=== PATIENT | female | born 1960 | race Hispanic/Latino ===

== ENCOUNTER 2017-10-29 00:32 | Inpatient (IN) | payer MEDICAID ==
[~2017-10-29] VITALS: Ht 167.6 cm; Wt 86.1 kg
[2017-10-29] MEDS ORDERED: IPRATROPIUM/ALBUTEROL SULFATE 3 ML SOLUTION IH ONE ×4 (00:48→03:34)
[2017-10-29] MEDS ORDERED: SODIUM CHLORIDE 0.9% 1000ML 1,000 ML IV ONE (02:04)
[2017-10-29] MEDS ORDERED: ACETAMINOPHEN 325 MG TAB ONE (02:04)
[2017-10-29] MEDS ORDERED: METHYLPREDNISOLONE SOD SUCC 125MG/2ML VIAL ONE (02:04)
[2017-10-29] MEDS ORDERED: IBUPROFEN 800 MG TAB ONE (02:50)
[2017-10-29] MEDS ORDERED: PROMETHAZINE/CODEINE 6.25-10MG/5ML CUP ONE (03:25)
[2017-10-29 04:00] LABS: BASOPHILS % (AUTO) 0.4 % (0.0-5.0); EOSINOPHILS % (AUTO) 0.8 % (0.0-8.0); HEMATOCRIT 35.5 % (36-48); LYMPHOCYTES % (AUTO) 6.4 % (21.0-51.0); MEAN CORPUSCULAR HEMOGLOBIN 27.2 pg (27.0-33.0); MEAN CORPUSCULAR HGB CONC 32.8 g/dL (32.0-36.0); MEAN CORPUSCULAR VOLUME 82.8 fL (79-99); MONOCYTES % (AUTO) 3.5 % (3.0-13.0); NEUTROPHILS % (AUTO) 88.9 % (40.0-77.0); PLATELET COUNT (AUTO) 210 K/uL (130-400); RED BLOOD CELL COUNT(AUTO) 4.29 MIL/uL (4.00-5.50); RED CELL DISTRIBUTION WIDTH 14.2 % (11.0-15.5); WHITE BLOOD COUNT (AUTO) 18.7 K/uL (4.8-10.8)
[2017-10-29 04:12] LABS: CREATININE 0.8 mg/dL (0.5-1.5); POTASSIUM 3.5 mmol/L (3.5-5.1)
[2017-10-29] MEDS ORDERED: CEFTRIAXONE SODIUM 2 GM VIAL ONE (04:13)
[2017-10-29] MEDS ORDERED: ONDANSETRON HCL 4 MG/2 ML VIAL ONE (04:13)
[2017-10-29] MEDS ORDERED: MORPHINE SULFATE 4 MG/1ML SYG ONE (04:14)
[2017-10-29 06:09] VITALS: BP 136/77
[2017-10-29] MEDS ORDERED: MORPHINE SULFATE 2 MG/ML 1ML SYG ONE (06:37)
[2017-10-29] MEDS ORDERED: ACETAMINOPHEN 325 MG TAB PO PRN ×2 (06:45)
[2017-10-29] MEDS ORDERED: ONDANSETRON HCL 4 MG/2 ML VIAL IV PRN (06:45)
[2017-10-29] MEDS ORDERED: NITROGLYCERIN 0.4 MG SL TAB SL PRN (06:45)
[2017-10-29] MEDS ORDERED: HYDRALAZINE HCL 20 MG/ML VIAL IV PRN (06:45)
[2017-10-29] MEDS ORDERED: POTASSIUM CHLORIDE 10% ELIXIR 20 MEQ/15 ML UDCUP PO PRN (06:45)
[2017-10-29] MEDS ORDERED: POTASSIUM CHLORIDE 20MEQ/100ML 100 ML IV PRN (06:45)
[2017-10-29] MEDS ORDERED: MAG HYDROX/AL HYDROX/SIMETH ES 30 ML SUSP UDCUP PO PRN (06:45)
[2017-10-29] MEDS ORDERED: METHYLPREDNISOLONE SOD SUCC 125MG/2ML VIAL IV SCH (06:45)
[2017-10-29] MEDS ORDERED: LACTULOSE 20 GM/30 ML UDCUP PO PRN (06:45)
[2017-10-29] MEDS ORDERED: LIDOCAINE HCL-MPF 1% 2ML VIAL IVP PRN (06:45)
[2017-10-29 07:44] LABS: CREATINE KINASE MB 0.7 ng/mL (0.5-3.6); CREATINE KINASE, TOTAL 88 U/L (21-232); MYOGLOBIN 38 ng/mL (10-92); TROPONIN I < 0.04 ng/mL (0.00-0.06)
[2017-10-29 08:00] VITALS: BP 110/61
[2017-10-29 08:07] LABS: ABG BASE EXCESS -4.9 mmol/L (-2.0-3.0); ABG HCO3 19.5 mmol/L (21.0-28.0); ABG OXYGEN SATURATION 96.7 % (95.0-99.0); ABG PCO2 35 mmHg (32-45)
[2017-10-29] MEDS: LEVOFLOXACIN 500 MG/D5W 100 ML 100 ML IV SCH (08:52)
[2017-10-29] MEDS: SODIUM CHLORIDE 0.9% 1000ML 1,000 ML IV SCH ×2 (08:52→20:15)
[2017-10-29] MEDS: OSELTAMIVIR PHOSPHATE 75 MG CAP PO SCH ×2 (08:52→20:14)
[2017-10-29] MEDS: FAMOTIDINE 20MG TAB 20 MG TAB PO SCH ×2 (08:52→20:14)
[2017-10-29] MEDS: ENOXAPARIN SODIUM 40 MG/0.4 ML SYRINGE SQ SCH (08:53)
[2017-10-29] MEDS ORDERED: PHARMACY COMMUNICATION MISC SCH (10:30)
[2017-10-29] MEDS: METHYLPREDNISOLONE SOD SUCC 125MG/2ML VIAL IV SCH ×2 (10:30→18:09)
[2017-10-29] MEDS: IPRATROPIUM/ALBUTEROL SULFATE 3 ML SOLUTION IH ONE ×2 (10:48→10:51)
[2017-10-29] MEDS ORDERED: COMPOUND PO MISCELLANEOUS 1 EACH MISC MISC PRN (11:00)
[2017-10-29] MEDS ORDERED: KETOROLAC TROMETHAMINE 15MG/ML IV PRN (11:15)
[2017-10-29 12:00] VITALS: BP 111/50
[2017-10-29] MEDS ORDERED: ALBUTEROL SULFATE 0.083% 2.5 MG/3 ML INH IH SCH (12:00)
[2017-10-29] MEDS: KETOROLAC TROMETHAMINE 15MG/ML IV SCH ×3 (12:19→23:16)
[2017-10-29] MEDS ORDERED: ALBUTEROL SULFATE 0.083% 2.5 MG/3 ML INH IH PRN (13:45)
[2017-10-29] MEDS: BENZONATATE 100 MG CAPSULE PO SCH ×2 (13:46→20:14)
[2017-10-29] MEDS: POTASSIUM CHLORIDE 20 MEQ ERTAB PO PRN (13:47)
[2017-10-29] MEDS: ALBUTEROL SULFATE 0.083% 2.5 MG/3 ML INH IH SCH ×3 (14:12→23:43)
[2017-10-29 15:52] VITALS: BP 108/55
[2017-10-29] MEDS: MORPHINE SULFATE 4 MG/1ML SYG IVP PRN (16:44)
[2017-10-29] MEDS: LIDOCAINE HCL 2% VISCOUS 30 ML, MAG HYDROX/AL HYDROX/SIMETH 30 ML, DICYCLOMINE HCL 20 MG PO PRN ×3 (16:44)
[2017-10-29 19:00] VITALS: BP 110/61
[2017-10-29] MEDS: GUAIFENESIN-DM 200/20 MG 10 ML PO PRN (20:14)
[2017-10-29] MEDS: ALPRAZOLAM 0.25 MG TABLET PO PRN (20:14)
[2017-10-30] VITALS (7 sets, daily range): BP systolic 97–137; BP diastolic 47–67
[2017-10-30] MEDS: SODIUM CHLORIDE 0.9% 1000ML 1,000 ML IV SCH ×2 (02:12→05:09)
[2017-10-30] MEDS: METHYLPREDNISOLONE SOD SUCC 125MG/2ML VIAL IV SCH ×3 (02:17→18:47)
[2017-10-30] MEDS: ALBUTEROL SULFATE 0.083% 2.5 MG/3 ML INH IH SCH ×6 (03:03→22:01)
[2017-10-30] MEDS: GUAIFENESIN-DM 200/20 MG 10 ML PO PRN ×2 (03:37→20:21)
[2017-10-30] MEDS: ACETAMINOPHEN-CODEINE 300/30MG TAB PO PRN (03:38)
[2017-10-30] MEDS: KETOROLAC TROMETHAMINE 15MG/ML IV SCH (05:01)
[2017-10-30 05:58] LABS: HEMATOCRIT 33.4 % (36-48); MEAN CORPUSCULAR HGB CONC 32.5 g/dL (32.0-36.0); MEAN CORPUSCULAR VOLUME 82.9 fL (79-99); PLATELET COUNT (AUTO) 205 K/uL (130-400); RED BLOOD CELL COUNT(AUTO) 4.03 MIL/uL (4.00-5.50); RED CELL DISTRIBUTION WIDTH 14.6 % (11.0-15.5); WHITE BLOOD COUNT (AUTO) 21.6 K/uL (4.8-10.8)
[2017-10-30 06:08] LABS: CREATININE 0.7 mg/dL (0.5-1.5); POTASSIUM 4.5 mmol/L (3.5-5.1)
[2017-10-30] MEDS: OSELTAMIVIR PHOSPHATE 75 MG CAP PO SCH ×2 (08:53→20:21)
[2017-10-30] MEDS: BENZONATATE 100 MG CAPSULE PO SCH ×3 (08:54→20:21)
[2017-10-30] MEDS: FAMOTIDINE 20MG TAB 20 MG TAB PO SCH ×2 (08:54→20:21)
[2017-10-30] MEDS: ENOXAPARIN SODIUM 40 MG/0.4 ML SYRINGE SQ SCH (08:54)
[2017-10-30] MEDS: LEVOFLOXACIN 500 MG/D5W 100 ML 100 ML IV SCH (08:54)
[2017-10-30] MEDS: ALPRAZOLAM 0.25 MG TABLET PO PRN (10:37)
[2017-10-30 11:01] LABS: APPEARANCE,URINE Clear (CLEAR); BILIRUBIN,URINE Negative (NEGATIVE); COLOR,URINE Yellow (YELLOW); GLUCOSE, URINE (UA) 250 mg/dL (NEGATIVE); KETONES,URINE Negative (NEGATIVE); LEUKOCYTE ESTERASE ,URINE Negative (NEGATIVE); NITRATE,URINE Negative (NEGATIVE); OCCULT BLOOD,URINE Negative (NEGATIVE); PH,URINE 5.5 (5.0-8.0); PROTEIN,URINE Negative (NEGATIVE); UROBILINOGEN,URINE 0.2 mg/dL (0.2-1.0)
[2017-10-30 11:10] LABS: BACTERIA,URINE Rare /HPF (None Seen); RBC,URINE 0-1 /HPF (0-1); SQUAMOUS EPITHELIAL CELL,UR Rare /LPF (0-2); WBC,URINE 0-1 /HPF (0-1)
[2017-10-30] MEDS ORDERED: SODIUM CHLORIDE 3% FOR INHALATION 4 ML/AMP VIAL.NEB IH ONE (13:25)
[2017-10-30] MEDS: ZOLPIDEM TARTRATE 5 MG TAB PO PRN (20:21)
[2017-10-31] MEDS: GUAIFENESIN-DM 200/20 MG 10 ML PO PRN (01:56)
[2017-10-31] MEDS: METHYLPREDNISOLONE SOD SUCC 125MG/2ML VIAL IV SCH ×3 (01:56→18:46)
[2017-10-31] MEDS: ALPRAZOLAM 0.25 MG TABLET PO PRN (01:56)
[2017-10-31] MEDS: ALBUTEROL SULFATE 0.083% 2.5 MG/3 ML INH IH SCH ×6 (03:08→22:16)
[2017-10-31 04:00] VITALS: BP 110/54
[2017-10-31 05:56] LABS: MEAN CORPUSCULAR HEMOGLOBIN 27.6 pg (27.0-33.0); MEAN CORPUSCULAR HGB CONC 33.5 g/dL (32.0-36.0); MEAN CORPUSCULAR VOLUME 82.6 fL (79-99); PLATELET COUNT (AUTO) 211 K/uL (130-400); RED CELL DISTRIBUTION WIDTH 14.5 % (11.0-15.5); WHITE BLOOD COUNT (AUTO) 24.2 K/uL (4.8-10.8)
[2017-10-31 06:11] LABS: CREATININE 0.7 mg/dL (0.5-1.5); POTASSIUM 4.4 mmol/L (3.5-5.1)
[2017-10-31 07:08] VITALS: BP 104/48
[2017-10-31] MEDS: ENOXAPARIN SODIUM 40 MG/0.4 ML SYRINGE SQ SCH (09:34)
[2017-10-31] MEDS: FAMOTIDINE 20MG TAB 20 MG TAB PO SCH ×2 (09:34→22:24)
[2017-10-31] MEDS: OSELTAMIVIR PHOSPHATE 75 MG CAP PO SCH ×2 (09:34→22:24)
[2017-10-31] MEDS: BENZONATATE 100 MG CAPSULE PO SCH ×3 (09:34→22:25)
[2017-10-31] MEDS: LEVOFLOXACIN 500 MG/D5W 100 ML 100 ML IV SCH (09:34)
[2017-10-31] MEDS ORDERED: VANCOMYCIN PROTOCOL PER PHARMACY IV PRN (09:45)
[2017-10-31 11:00] VITALS: BP 103/48
[2017-10-31] MEDS ORDERED: VANCOMYCIN 1.5 GM in SODIUM CHLORIDE 0.9% 250 ML IV ONE (12:00)
[2017-10-31] MEDS ORDERED: COMPOUND IV REFRIGERATED 1 EACH IVSOLN MISC PRN (12:00)
[2017-10-31] MEDS: ACETYLCYSTEINE 20% 200MG/ML 4ML VIAL IH SCH ×2 (13:30→22:16)
[2017-10-31] MEDS: GUAIFENESIN-CODEINE 5 ML SYRUP PO PRN (14:02)
[2017-10-31 15:00] VITALS: BP 112/63
[2017-10-31] MEDS: ZOSYN 3.375GM+NS 50ML 50 ML IV SCH ×2 (16:18→22:24)
[2017-10-31 19:59] VITALS: BP 127/59
[2017-10-31] MEDS: ACETAMINOPHEN-CODEINE 300/30MG TAB PO PRN (22:24)
[2017-10-31] MEDS: VANCOMYCIN 750MG + NS 250 ML IV SCH ×2 (22:24)
[2017-11-01] VITALS (7 sets, daily range): BP systolic 114–136; BP diastolic 51–67
[2017-11-01] MEDS: ALBUTEROL SULFATE 0.083% 2.5 MG/3 ML INH IH SCH ×6 (02:08→22:38)
[2017-11-01] MEDS: GUAIFENESIN-CODEINE 5 ML SYRUP PO PRN ×3 (02:25→21:07)
[2017-11-01] MEDS: METHYLPREDNISOLONE SOD SUCC 125MG/2ML VIAL IV SCH ×3 (02:25→18:04)
[2017-11-01] MEDS: ZOSYN 3.375GM+NS 50ML 50 ML IV SCH ×3 (04:32→21:06)
[2017-11-01] MEDS: VANCOMYCIN 750MG + NS 250 ML IV SCH ×6 (04:32→19:53)
[2017-11-01] MEDS: LIDOCAINE HCL 2% VISCOUS 30 ML, MAG HYDROX/AL HYDROX/SIMETH 30 ML, DICYCLOMINE HCL 20 MG PO PRN ×3 (04:42)
[2017-11-01 05:58] LABS: HEMATOCRIT 32.2 % (36-48); MEAN CORPUSCULAR HEMOGLOBIN 26.9 pg (27.0-33.0); MEAN CORPUSCULAR HGB CONC 32.7 g/dL (32.0-36.0); MEAN CORPUSCULAR VOLUME 82.4 fL (79-99); PLATELET COUNT (AUTO) 200 K/uL (130-400); RED BLOOD CELL COUNT(AUTO) 3.91 MIL/uL (4.00-5.50); WHITE BLOOD COUNT (AUTO) 17.1 K/uL (4.8-10.8)
[2017-11-01 06:19] LABS: CREATININE 0.9 mg/dL (0.5-1.5); POTASSIUM 3.8 mmol/L (3.5-5.1)
[2017-11-01] MEDS: ACETYLCYSTEINE 20% 200MG/ML 4ML VIAL IH SCH (07:16)
[2017-11-01] MEDS: LEVOFLOXACIN 500 MG/D5W 100 ML 100 ML IV SCH (09:07)
[2017-11-01] MEDS: OSELTAMIVIR PHOSPHATE 75 MG CAP PO SCH ×2 (09:07→19:54)
[2017-11-01] MEDS: ENOXAPARIN SODIUM 40 MG/0.4 ML SYRINGE SQ SCH (09:08)
[2017-11-01] MEDS: FAMOTIDINE 20MG TAB 20 MG TAB PO SCH ×2 (09:08→19:54)
[2017-11-01] MEDS: BENZONATATE 100 MG CAPSULE PO SCH ×3 (09:08→19:54)
[2017-11-01] MEDS: LACTOBACILLUS RHAMNOSUS GG 1 EACH CAP.SPRINK PO SCH ×2 (14:51→19:53)
[2017-11-01] MEDS: MORPHINE SULFATE 2 MG/ML 1ML SYG IV PRN (14:55)
[2017-11-01] MEDS: ZOLPIDEM TARTRATE 5 MG TAB PO PRN (19:54)
[2017-11-01] MEDS: LOPERAMIDE HCL 2 MG CAP PO PRN (19:54)
[2017-11-02] MEDS: ALBUTEROL SULFATE 0.083% 2.5 MG/3 ML INH IH SCH ×6 (01:12→21:23)
[2017-11-02] MEDS: METHYLPREDNISOLONE SOD SUCC 125MG/2ML VIAL IV SCH ×3 (02:14→17:43)
[2017-11-02 03:00] VITALS: BP 132/78
[2017-11-02] MEDS: GUAIFENESIN-CODEINE 5 ML SYRUP PO PRN (03:10)
[2017-11-02] MEDS: VANCOMYCIN 750MG + NS 250 ML IV SCH ×6 (03:10→21:18)
[2017-11-02 05:53] LABS: HEMATOCRIT 32.4 % (36-48); MEAN CORPUSCULAR HEMOGLOBIN 27.8 pg (27.0-33.0); MEAN CORPUSCULAR HGB CONC 33.8 g/dL (32.0-36.0); MEAN CORPUSCULAR VOLUME 82.3 fL (79-99); NUCLEATED RED BLOOD CELLS 0.1 % (0.0-0.19); PLATELET COUNT (AUTO) 203 K/uL (130-400); RED BLOOD CELL COUNT(AUTO) 3.93 MIL/uL (4.00-5.50); RED CELL DISTRIBUTION WIDTH 14.4 % (11.0-15.5); WHITE BLOOD COUNT (AUTO) 17.1 K/uL (4.8-10.8)
[2017-11-02 05:57] LABS: CREATININE 0.8 mg/dL (0.5-1.5); POTASSIUM 3.5 mmol/L (3.5-5.1)
[2017-11-02] MEDS: ZOSYN 3.375GM+NS 50ML 50 ML IV SCH ×3 (06:20→21:19)
[2017-11-02] MEDS: POTASSIUM CHLORIDE 20 MEQ ERTAB PO PRN ×2 (06:21→08:09)
[2017-11-02 08:05] VITALS: BP 125/67
[2017-11-02] MEDS: BENZONATATE 100 MG CAPSULE PO SCH ×3 (08:08→21:18)
[2017-11-02] MEDS: LACTOBACILLUS RHAMNOSUS GG 1 EACH CAP.SPRINK PO SCH ×3 (08:08→21:18)
[2017-11-02] MEDS: LEVOFLOXACIN 500 MG/D5W 100 ML 100 ML IV SCH (08:08)
[2017-11-02] MEDS: ENOXAPARIN SODIUM 40 MG/0.4 ML SYRINGE SQ SCH (08:09)
[2017-11-02] MEDS: OSELTAMIVIR PHOSPHATE 75 MG CAP PO SCH ×2 (08:09→21:18)
[2017-11-02] MEDS: FAMOTIDINE 20MG TAB 20 MG TAB PO SCH ×2 (08:09→21:18)
[2017-11-02] MEDS: ACETAMINOPHEN-CODEINE 300/30MG TAB PO PRN (08:13)
[2017-11-02 11:58] VITALS: BP 131/64
[2017-11-02 15:00] VITALS: BP 149/71
[2017-11-02] MEDS: MORPHINE SULFATE 4 MG/1ML SYG IVP PRN (16:27)
[2017-11-02 20:16] VITALS: BP 134/74
[2017-11-02] MEDS: ZOLPIDEM TARTRATE 5 MG TAB PO PRN (22:05)
[2017-11-02 23:57] VITALS: BP 143/66
[2017-11-03] MEDS: ALBUTEROL SULFATE 0.083% 2.5 MG/3 ML INH IH SCH ×7 (01:16→22:31)
[2017-11-03] MEDS: METHYLPREDNISOLONE SOD SUCC 125MG/2ML VIAL IV SCH (03:04)
[2017-11-03] MEDS: MORPHINE SULFATE 2 MG/ML 1ML SYG IV PRN (03:05)
[2017-11-03 03:34] VITALS: BP 126/59
[2017-11-03] MEDS: VANCOMYCIN 750MG + NS 250 ML IV SCH ×2 (04:45)
[2017-11-03 05:54] LABS: HEMATOCRIT 31.9 % (36-48); MEAN CORPUSCULAR HEMOGLOBIN 27.1 pg (27.0-33.0); MEAN CORPUSCULAR HGB CONC 33.1 g/dL (32.0-36.0); MEAN CORPUSCULAR VOLUME 81.9 fL (79-99); PLATELET COUNT (AUTO) 212 K/uL (130-400); RED BLOOD CELL COUNT(AUTO) 3.89 MIL/uL (4.00-5.50); RED CELL DISTRIBUTION WIDTH 14.7 % (11.0-15.5); WHITE BLOOD COUNT (AUTO) 18.6 K/uL (4.8-10.8)
[2017-11-03 06:09] LABS: CREATININE 0.8 mg/dL (0.5-1.5); POTASSIUM 3.3 mmol/L (3.5-5.1)
[2017-11-03] MEDS: ZOSYN 3.375GM+NS 50ML 50 ML IV SCH ×3 (06:49→22:29)
[2017-11-03 08:00] VITALS: BP 134/70
[2017-11-03] MEDS: LEVOFLOXACIN 500 MG/D5W 100 ML 100 ML IV SCH (11:58)
[2017-11-03] MEDS: LACTOBACILLUS RHAMNOSUS GG 1 EACH CAP.SPRINK PO SCH ×3 (11:59→22:33)
[2017-11-03] MEDS: BENZONATATE 100 MG CAPSULE PO SCH ×3 (11:59→22:32)
[2017-11-03] MEDS: FAMOTIDINE 20MG TAB 20 MG TAB PO SCH ×2 (11:59→22:29)
[2017-11-03] MEDS: POTASSIUM CHLORIDE 20 MEQ ERTAB PO PRN ×3 (12:00→17:08)
[2017-11-03] MEDS: ENOXAPARIN SODIUM 40 MG/0.4 ML SYRINGE SQ SCH (12:01)
[2017-11-03] MEDS: ACETAMINOPHEN-CODEINE 300/30MG TAB PO PRN (12:06)
[2017-11-03 12:08] VITALS: BP 137/64
[2017-11-03 16:00] VITALS: BP 135/64
[2017-11-03 20:00] VITALS: BP 133/64
[2017-11-03] MEDS: METHYLPREDNISOLONE SOD SUCC 40MG/ML 1ML IVP SCH (22:29)
[2017-11-03] MEDS: LOPERAMIDE HCL 2 MG CAP PO PRN (22:37)
[2017-11-03] MEDS: ZOLPIDEM TARTRATE 5 MG TAB PO PRN (22:37)
[2017-11-03 23:48] VITALS: BP 138/64
[2017-11-04] MEDS: ALBUTEROL SULFATE 0.083% 2.5 MG/3 ML INH IH SCH ×6 (02:04→22:23)
[2017-11-04 03:48] VITALS: BP 135/65
[2017-11-04 05:35] LABS: HEMATOCRIT 32.6 % (36-48); MEAN CORPUSCULAR HEMOGLOBIN 27.2 pg (27.0-33.0); MEAN CORPUSCULAR HGB CONC 33.2 g/dL (32.0-36.0); MEAN CORPUSCULAR VOLUME 81.8 fL (79-99); PLATELET COUNT (AUTO) 189 K/uL (130-400); RED BLOOD CELL COUNT(AUTO) 3.98 MIL/uL (4.00-5.50); RED CELL DISTRIBUTION WIDTH 14.7 % (11.0-15.5); WHITE BLOOD COUNT (AUTO) 21.5 K/uL (4.8-10.8)
[2017-11-04 05:43] LABS: CREATININE 0.9 mg/dL (0.5-1.5); POTASSIUM 3.5 mmol/L (3.5-5.1)
[2017-11-04] MEDS: ZOSYN 3.375GM+NS 50ML 50 ML IV SCH ×3 (06:35→22:45)
[2017-11-04] MEDS: POTASSIUM CHLORIDE 20 MEQ ERTAB PO PRN ×2 (06:35→10:39)
[2017-11-04] MEDS: GUAIFENESIN-CODEINE 5 ML SYRUP PO PRN (06:40)
[2017-11-04 07:56] VITALS: BP 147/65
[2017-11-04] MEDS: ENOXAPARIN SODIUM 40 MG/0.4 ML SYRINGE SQ SCH (08:41)
[2017-11-04] MEDS: BENZONATATE 100 MG CAPSULE PO SCH ×3 (08:41→22:46)
[2017-11-04] MEDS: LACTOBACILLUS RHAMNOSUS GG 1 EACH CAP.SPRINK PO SCH ×3 (08:41→22:46)
[2017-11-04] MEDS: METHYLPREDNISOLONE SOD SUCC 40MG/ML 1ML IVP SCH (08:41)
[2017-11-04] MEDS: FAMOTIDINE 20MG TAB 20 MG TAB PO SCH ×2 (08:41→22:46)
[2017-11-04] MEDS ORDERED: FLUCONAZOLE 200 MG/NS 100 ML 100 ML IV SCH (09:00)
[2017-11-04] MEDS: LEVOFLOXACIN 500 MG/D5W 100 ML 100 ML IV SCH (11:03)
[2017-11-04] MEDS: ACETAMINOPHEN-CODEINE 300/30MG TAB PO PRN ×2 (11:04→18:35)
[2017-11-04 11:50] VITALS: BP 151/69
[2017-11-04] MEDS ORDERED: SODIUM CHLORIDE 0.9% 1000ML 1,000 ML IV ONE (12:21)
[2017-11-04] MEDS ORDERED: ACETYLCYSTEINE 20% 200MG/ML 4ML VIAL IH SCH (14:00)
[2017-11-04 16:33] VITALS: BP 147/62
[2017-11-04 21:33] VITALS: BP 148/70
[2017-11-04] MEDS: MORPHINE SULFATE 4 MG/1ML SYG IVP PRN (23:00)
[2017-11-04 23:40] VITALS: BP 131/61
[2017-11-05] MEDS: ALBUTEROL SULFATE 0.083% 2.5 MG/3 ML INH IH SCH ×2 (02:37→07:32)
[2017-11-05] MEDS: ALPRAZOLAM 0.25 MG TABLET PO PRN (02:47)
[2017-11-05 04:24] VITALS: BP 122/57
[2017-11-05 05:47] LABS: HEMATOCRIT 30.8 % (36-48); MEAN CORPUSCULAR HEMOGLOBIN 26.9 pg (27.0-33.0); MEAN CORPUSCULAR HGB CONC 32.8 g/dL (32.0-36.0); MEAN CORPUSCULAR VOLUME 81.9 fL (79-99); PLATELET COUNT (AUTO) 187 K/uL (130-400); RED BLOOD CELL COUNT(AUTO) 3.77 MIL/uL (4.00-5.50); RED CELL DISTRIBUTION WIDTH 14.7 % (11.0-15.5); WHITE BLOOD COUNT (AUTO) 23.4 K/uL (4.8-10.8)
[2017-11-05] MEDS: ZOSYN 3.375GM+NS 50ML 50 ML IV SCH (05:49)
[2017-11-05 05:57] LABS: CREATININE 0.8 mg/dL (0.5-1.5); POTASSIUM 3.1 mmol/L (3.5-5.1)
[2017-11-05 08:06] VITALS: BP 135/69
[2017-11-05] MEDS: LEVOFLOXACIN 500 MG/D5W 100 ML 100 ML IV SCH (08:13)
[2017-11-05] MEDS ORDERED: LEVOFLOXACIN 500 MG TABLET PO SCH (09:30)
[2017-11-05] MEDS ORDERED: DOXYCYCLINE HYCLATE 100 MG TABLET PO SCH (09:30)
[2017-11-05] MEDS: FAMOTIDINE 20MG TAB 20 MG TAB PO SCH (09:39)
[2017-11-05] MEDS: LACTOBACILLUS RHAMNOSUS GG 1 EACH CAP.SPRINK PO SCH (09:39)
[2017-11-05] MEDS: BENZONATATE 100 MG CAPSULE PO SCH (09:40)
[2017-11-05] MEDS: ENOXAPARIN SODIUM 40 MG/0.4 ML SYRINGE SQ SCH (09:40)
== END 2017-11-05 10:50 | disposition home or self-care (01) | DRG 720 ==
LOC: EDH 00:32 → OBSVTOIN 00:33 → EDHIP 00:33 → 4CH 00:33
PROVIDERS: ADMIT Family Medicine; ATTEND Family Medicine
PROC: 5A09357 Assistance with Respiratory Ventilation, Less than 24 Consecutive Hours, Continuous Positive Airway Pressure (ICD-10-PCS; principal; 2017-10-29)
DX: A41.9 Sepsis, unspecified organism (principal); J18.9 Pneumonia, unspecified organism; J45.909 Unspecified asthma, uncomplicated; F41.9 Anxiety disorder, unspecified; R79.1 Abnormal coagulation profile; F17.210 Nicotine dependence, cigarettes, uncomplicated; Z98.51 Tubal ligation status; Z83.6 Family history of other diseases of the respiratory system; Z89.011 Acquired absence of right thumb
CPT/HCPCS: 36415; 36600; 71045; 71046; 71250; 80048; 80202; 81001; 82550; 82553; 82803; 83874; 84484; 85025; 85027; 85378; 86677; 87071; 87205; 87633; 87804; 93970; 94640; 94660; 94664; J0696; J1450; J1650; J1885; J1956; J2270; J2405; J2543; J2920; J2930; J3370; J7030; J7608; Q0169

== ENCOUNTER 2017-12-11 17:22 | Emergency (ER) | payer MEDICAID ==
[2017-12-11] MEDS ORDERED: DiphenhydrAMINE HCL 50 MG/ML VIAL ONE (18:45)
[2017-12-11] MEDS ORDERED: METHYLPREDNISOLONE SOD SUCC 125MG/2ML VIAL ONE (18:45)
[2017-12-11] MEDS ORDERED: FAMOTIDINE 20MG TAB 20 MG TAB ONE (18:45)
== END 2017-12-11 20:07 | disposition home or self-care (01) ==
LOC: EDH 17:22
DX: T78.49XA Other allergy, initial encounter (principal); Z98.51 Tubal ligation status; Z72.0 Tobacco use; X58.XXXA Exposure to other specified factors, initial encounter
CPT/HCPCS: 96372 ×2; 99284; J1200; J2930

== ENCOUNTER 2019-08-27 17:58 | Emergency (ER) | payer MEDICAID ==
[2019-08-27 18:33] LABS: BASOPHILS % (AUTO) 0.6 % (0.0-5.0); EOSINOPHILS % (AUTO) 1.8 % (0.0-8.0); HEMATOCRIT 40.1 % (36-48); LYMPHOCYTES % (AUTO) 22.9 % (21.0-51.0); MEAN CORPUSCULAR HEMOGLOBIN 27.6 pg (27.0-33.0); MEAN CORPUSCULAR HGB CONC 33.4 g/dL (32.0-36.0); MEAN CORPUSCULAR VOLUME 82.6 fL (79-99); NEUTROPHILS % (AUTO) 69.7 % (40.0-77.0); PLATELET COUNT (AUTO) 231 K/uL (130-400); RED BLOOD CELL COUNT(AUTO) 4.86 MIL/uL (4.00-5.50); RED CELL DISTRIBUTION WIDTH 15.1 % (11.0-15.5); WHITE BLOOD COUNT (AUTO) 10.9 K/uL (4.8-10.8)
[2019-08-27] MEDS ORDERED: METHYLPREDNISOLONE SOD SUCC 125MG/2ML VIAL ONE (18:37)
[2019-08-27] MEDS ORDERED: IPRATROPIUM/ALBUTEROL SULFATE 3 ML SOLUTION IH ONE ×2 (18:39→19:26)
[2019-08-27 18:51] LABS: CREATININE 0.9 mg/dL (0.5-1.5); POTASSIUM 3.5 mmol/L (3.5-5.1)
[2019-08-27 18:56] LABS: BILIRUBIN,TOTAL 0.2 mg/dL (0.2-1.0); TOTAL PROTEIN, SERUM 7.4 g/dL (6.0-8.3)
== END 2019-08-27 19:58 | disposition home or self-care (01) ==
LOC: EDH 17:58
DX: J45.901 Unspecified asthma with (acute) exacerbation (principal); J10.1 Influenza due to other identified influenza virus with other respiratory manifestations
CPT/HCPCS: 36415; 71045; 80053; 84484; 85025; 87804 ×2; 93005; 94640 ×2; 96374; 99285; J2930

== ENCOUNTER 2019-10-28 15:31 | Emergency (ER) | payer MEDICAID ==
[2019-10-28] MEDS ORDERED: KETOROLAC TROMETHAMINE 60 MG/2 ML VIAL ONE (16:45)
== END 2019-10-28 16:59 | disposition home or self-care (01) ==
LOC: EDH 15:31
DX: M19.031 Primary osteoarthritis, right wrist (principal); J45.909 Unspecified asthma, uncomplicated; F41.9 Anxiety disorder, unspecified; Z72.0 Tobacco use; Z98.890 Other specified postprocedural states
CPT/HCPCS: 73110; 96372; 99284; J1885